=== PATIENT | male | born 1965 | race Caucasian/White ===

== ENCOUNTER 2017-01-27 08:31 | Emergency (ER) | payer OTHER, BC ==
[2017-01-27 08:56] VITALS: BP 111/66
--- NOTE | 2017-01-27 09:07 | EDM.PDOC ---
ED HPI GENERAL MEDICAL PROBLEM - General Chief Complaint: Upper Extremity Injury/Pain Stated Complaint: HURT RIGHT HAND Time Seen by Provider: 01/27/17 08:45 Source of Information: Reports: Patient History Limitations: Reports: No Limitations - History of Present Illness INITIAL COMMENTS - FREE TEXT/NARRATIVE: Pt states he was drilling with his right hand yesterday and a piece of metal fell bending the wrist back. Pt states he believes he heard a pop.. pain has been increasing and mobility has decreased. 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 [No Known Home Meds] 06/03/16 [History] Past Medical History - Past Health History Medical/Surgical History: Denies Medical/Surgical History Social & Family History - Tobacco Use Smoking Status *Q: Current Every Day Smoker Years of Tobacco use: 30 Packs/Tins Daily: 0.5 - Alcohol Use Days Per Week of Alcohol Use: 1 Number of Drinks Per Day: 2 Total Drinks Per Week: 2 - Recreational Drug Use Recreational Drug Use: No Review of Systems - Review of Systems Review Of Systems: ROS reveals no pertinent complaints other than HPI. Constitutional: Reports: No Symptoms Respiratory: Reports: No Symptoms Cardiovascular: Reports: No Symptoms GI/Abdominal: Reports: No Symptoms Musculoskeletal: Reports: Hand Pain Skin: Reports: No Symptoms Neurological: Reports: No Symptoms ED EXAM, GENERAL - Physical Exam Exam: See Below Exam Limited By: No Limitations General Appearance: Alert, WD/WN, No Apparent Distress Respiratory/Chest: No Respiratory Distress, Normal Breath Sounds, No Accessory Muscle Use Cardiovascular: Normal Peripheral Pulses, Regular Rate, Rhythm GI/Abdominal: No Distention Extremities: Arm Pain, Limited Range of Motion Neurological: Alert Skin Exam: Warm, Dry, Intact Course - Vital Signs Last Recorded V/S: Last Vital Signs Temp 35.6 C 01/27/17 08:53 Pulse 73 01/27/17 08:53 Resp 14 01/27/17 08:53 BP 111/66 01/27/17 08:53 Pulse Ox 99 01/27/17 08:53 - Orders/Labs/Meds Orders: Active Orders 24 hr Category Date Time Status Wrist Comp Min 3V Rt [CR] Stat Exams 01/27/17 08:47 Ordered Departure - Departure Time of Disposition: 09:25 (right wrist sprain ) Disposition: Home, Self-Care 01 Condition: Good Clinical Impression: Right wrist sprain - Discharge Information Forms: ED Department Discharge - My Orders Last 24 Hours: My Active Orders 01/27/17 08:47 Wrist Comp Min 3V Rt [CR] Stat - Assessment/Plan Last 24 Hours: My Active Orders 01/27/17 08:47 Wrist Comp Min 3V Rt [CR] Stat
== END 2017-01-27 09:39 | disposition home or self-care (01) ==
LOC: VM.ED 08:31
DX: S63.501A Unspecified sprain of right wrist, initial encounter (principal); F17.210 Nicotine dependence, cigarettes, uncomplicated; W20.8XXA Other cause of strike by thrown, projected or falling object, initial encounter
CPT/HCPCS: 73110-RT; 99283